=== PATIENT | male | born 1975 | race Caucasian/White ===

== ENCOUNTER 2018-12-14 17:49 | Inpatient (IN) | payer MEDICARE, MEDICAID ==
[~2018-12-14] VITALS: Ht 182.9 cm; Wt 74.8 kg
[2018-12-19] MEDS ORDERED: TOPAMAX50 MG PO (10:37)
[2018-12-19] MEDS ORDERED: KLONOPIN1 MG PO (10:37)
[2018-12-19 11:18] LABS: CALC OSMOLALITY 280 mosm/kg (275-300); CALCIUM 9.2 mg/dL (8.5-10.1); CARBON DIOXIDE 26.5 mmol/L (21.0-32.0); CHLORIDE - SERUM 105 mmol/L (98-107); GLUCOSE 91 mg/dL (74-106); POTASSIUM - SERUM 4.1 mmol/L (3.5-5.1); SODIUM 141 mmol/L (136-145); UREA NITROGEN 12 mg/dL (7-18); eGFR NON AFRICAN AMERICAN 87 mL/min (90-120)
[2018-12-19 11:52] LABS: BASOPHILS 0.6 % (0-2); EOSINOPHILS 1.7 % (0-7); HEMATOCRIT 47.6 % (42.0-54.0); HEMOGLOBIN 15.8 g/dL (13.5-17.5); IMMATURE GRANULOCYTES 0.3 % (0-5); LYMPHOCYTES 27.4 % (15-50); MCH 32.3 pg (26.0-34.0); MCHC 33.2 g/dL (31.0-37.0); MCV 97.3 fL (80.0-100.0); MEAN PLATELET VOLUME 10.9 fL (7.4-10.4); PLATELET COUNT 267 10x3/uL (130-400); RBC 4.89 10x6/uL (4.20-6.10); RDW 13.2 % (11.5-14.5); WBC 7.1 10x3/uL (4.8-10.8)
[2018-12-20 06:50] VITALS: BP 95/50
--- NOTE | 2018-12-20 11:02 | NUR ---
CONULTED ANESTHESIA REGARDING ELEVATED BLOOD PRESSURE. 172/108. PATIENT IS ASYMPTOMATIC. HR 72, O2 SAT 100% 2L. PATIENT HAS HAD DILAUDID 2MG AND HAS TOLERATED THIS. VERBAL ORDERS RECEIVED TO ADMINISTER HYDRALAZINE 5MG IN PACU NOW. ORDERS RECEIVED AND IMPLEMENTED.
--- NOTE | 2018-12-20 11:35 | NUR ---
AT 1120 RECONULTED ANESTHESIA REGARDING PERSISTENT ELEVATED BLOOD PRESSURE AFTER ADMINISTRATION OF HYDRALAZINE 5MG. VERBAL ORDERS RECEIVED TO REPEAT HYDRALAZINE 5MG NOW IN PACU. ORDERS RECEIEVED AND IMPLEMENTED. WILL CONTINUE TO MONITOR.
[2018-12-20 11:54] VITALS: BP 147/101
[2018-12-20 12:30] VITALS: BP 142/97
[2018-12-20 16:00] VITALS: BP 138/101
--- NOTE | 2018-12-20 18:47 | NUR ---
MAJOR ACCOUNT REPRESENTATIVE COMPLETE. PT LYING IN BED AAO X4 TO PERSON, PLACE, TIME AND SITUATION. SISTER AT BEDSIDE. DENIES PAIN AT THIS TIME. HALS COLECTOMY DONE TODAY. DENIES NEEDS AT THIS TIME. CL IN REACH
[2018-12-20 20:48] VITALS: BP 122/99
[2018-12-21 00:34] VITALS: BP 117/83
--- NOTE | 2018-12-21 02:31 | NUR ---
EYES CLOSED RESPIRATIONS WITH EASE AND UNLABORED. SR UP X2 CALL LIGHT WITHIN REACH.
[2018-12-21 04:46] VITALS: BP 120/84
[2018-12-21 06:50] LABS: CALC OSMOLALITY 280 mosm/kg (275-300); CALCIUM 8.7 mg/dL (8.5-10.1); CHLORIDE - SERUM 107 mmol/L (98-107); GLUCOSE 87 mg/dL (74-106); POTASSIUM - SERUM 4.3 mmol/L (3.5-5.1); SODIUM 142 mmol/L (136-145); UREA NITROGEN 11 mg/dL (7-18); eGFR NON AFRICAN AMERICAN 87 mL/min (90-120)
[2018-12-21 06:53] LABS: BASOPHILS 0.1 % (0-2); EOSINOPHILS 0 % (0-7); HEMATOCRIT 40.8 % (42.0-54.0); HEMOGLOBIN 13.4 g/dL (13.5-17.5); IMMATURE GRANULOCYTES 0.1 % (0-5); LYMPHOCYTES 14.9 % (15-50); MCH 32.1 pg (26.0-34.0); MCHC 32.8 g/dL (31.0-37.0); MCV 97.8 fL (80.0-100.0); MEAN PLATELET VOLUME 10.7 fL (7.4-10.4); MONOCYTES 9.1 % (2-11); NEUTROPHILS 75.8 % (40-80); PLATELET COUNT 238 10x3/uL (130-400); RBC 4.17 10x6/uL (4.20-6.10); RDW 13.2 % (11.5-14.5)
[2018-12-21 07:10] LABS: WBC 13.5 10x3/uL (4.8-10.8)
[2018-12-21 09:13] VITALS: BP 105/66
[2018-12-21 12:53] VITALS: Ht 182.9 cm; Wt 74.8 kg
[2018-12-21 15:16] VITALS: BP 131/98
[2018-12-21 17:52] VITALS: BP 101/39
[2018-12-21 20:00] VITALS: BP 113/80
--- NOTE | 2018-12-21 21:00 | NUR ---
PT LYING IN BED RESTING, NO SIGNS OF DISTRESS. ALERT AND ORIENTED. PT STATES PAIN IS ALWAYS 9 OR 10/10 AT ALL TIMES. IV RIGHT FA INFILTRATED. DC'D W/ CATHETER TIP INTACT. RESITED IV TO LEFT UPPER ARM INFUSING NS @ 125 W/ DILAUDID GREENSMAN. PT RECIEVING ATIVAN FOR ANXIETY. REFUSES SCDS. UP AD JAG. WAS ABLE TO GET UP AND TAKE SHOWER W/ MINIMAL TO NO ASSIST. PT VOIDING GOOD AFTER [place]FIELD REMOVAL. NO OTHER COMPLAINTS OR NEEDS AT THIS TIME. CL IN REACH, WILL CONTINUE TO MONITOR
[2018-12-22 05:06] LABS: BASOPHILS 0.3 % (0-2); EOSINOPHILS 1.6 % (0-7); HEMATOCRIT 32.7 % (42.0-54.0); HEMOGLOBIN 11.1 g/dL (13.5-17.5); IMMATURE GRANULOCYTES 0.1 % (0-5); LYMPHOCYTES 27.9 % (15-50); MCH 32.7 pg (26.0-34.0); MCHC 33.9 g/dL (31.0-37.0); MCV 96.5 fL (80.0-100.0); MEAN PLATELET VOLUME 10.5 fL (7.4-10.4); MONOCYTES 8.5 % (2-11); NEUTROPHILS 61.6 % (40-80); PLATELET COUNT 199 10x3/uL (130-400); RBC 3.39 10x6/uL (4.20-6.10); RDW 13.1 % (11.5-14.5)
[2018-12-22 05:10] LABS: WBC 7.9 10x3/uL (4.8-10.8)
[2018-12-22 05:26] LABS: CARBON DIOXIDE 21.5 mmol/L (21.0-32.0); CHLORIDE - SERUM 109 mmol/L (98-107); CREATININE - SERUM 0.8 mg/dL (0.6-1.3); GLUCOSE 81 mg/dL (74-106); SODIUM 142 mmol/L (136-145); eGFR NON AFRICAN AMERICAN > 90 mL/min (90-120)
[2018-12-22 05:29] LABS: CALC OSMOLALITY 282 mosm/kg (275-300); POTASSIUM - SERUM 3.4 mmol/L (3.5-5.1); UREA NITROGEN 14 mg/dL (7-18)
[2018-12-22 05:51] VITALS: BP 103/60
--- NOTE | 2018-12-22 07:45 | NUR ---
PT IS RESTING IN BED WITH EYES CLOSED. RESPIRATIONS ARE EVEN AND UNLABORED. PT IS EASILY AROUSED WITH VERNAL STIMULATION. PT REPORTS PAIN IN THE ABDOMINAL AREA 9/10. PT WITH MAKING LINE WORKER AVAILABLE. PT REPORTS BM THIS AM AND DESCRIBES SMALL AMOUNT OF UNFORMED STOOL. PT REPORTS THAT HE IS PASSING GAS. BS ARE ACTIVE X 4. PT REFUSES SCDS. BED IS IN THE LOWEST POSITION. CALL LIGHT AND BEDSIDE TABLE ARE WITHIN REACH. WILL CONT TO MONITOR.
[2018-12-22 08:19] VITALS: BP 117/70
[2018-12-22 08:30] VITALS: BP 91/62
--- NOTE | 2018-12-22 11:03 | MORECARE ---
CASE MANAGEMENT DISCHARGE SUMMARY PATIENT: EDUARDO MIGUEL UNIT: [id number] ADM DATE: 12/20/18 AGE: 43 : [birth year] SEX: M ROOM/BED: D.2214 AUTHOR: SHAINA WAY PHYSICIAN: REFERRING PHYSICIAN: BAKARI RICH MD DATE OF SERVICE: 12/22/18 Discharge Plan Patient Name: EDUARDO MIGUEL Facility: [facility]:[place] : 1975 Planned Disposition: Anticipated Discharge Date: Discharge Date: Expected LOS: Initial Reviewer: [email or web address] Initial Review Date: 12/20/2018 Generated: 12/22/18 12:03 pm Comments DCP- Discharge Planning Updated by [email or web address]: Ciara Diamond on 12/22/18 9:[address] attempted to see patient, he was sleeping will attempt at a later time Patient Name: EDUARDO MIGUEL Page [id number] at 1103 All edits/amendments must be made on the electronic document DICTATION DATE: 12/22/18 110 TRAY DRIER OPERATOR: LULU 12/22/18 1103 RPT#: [id number] DC DATE: STATUS: ADM IN [facility] [address] [place] [address] END OF REPORT
[2018-12-22 11:30] VITALS: BP 116/60
[2018-12-22 14:32] VITALS: BP 125/75
--- NOTE | 2018-12-22 15:49 | NUR ---
HUMAN RESOURCES PARTNER DILAUDID AND PIV INFUSION STOPPED. PT LEFT UPPER ARM PIV SALINE LOCKED.
--- NOTE | 2018-12-22 20:30 | NUR ---
PT LYING IN BED RESTING W/ EYES CLOSED. NO SIGNS OF DISTRESS. AWAKENS TO VERBAL STIMULI, ALERT AND ORIENTED. IV LEFT UPPER ARM SL. FLUSHES WELL. DRESSING CDI. PT STATES PAIN 07/25. PT ALREADY RECIEVED NORCO AT 1800. PT BP 91/62. INFORMED PT IT WAS TOO LOW FOR PRN DILAUDID BUT HE COULD RECIEVE SCHEDULED TORADOL. PT AGREED. REFUSES SCDS. CL IN REACH, WILL CONT TO MONITOR
[2018-12-22 23:16] VITALS: BP 91/62
--- NOTE | 2018-12-23 03:00 | NUR ---
PT STATES PAIN 06/24. GAVE NORCO ORDERED. NO OTHER NEEDS OR COMPLAINTS AT THIS TIME. CL IN REACH
[2018-12-23 03:38] VITALS: BP 105/74
[2018-12-23 06:20] LABS: BASOPHILS 0.3 % (0-2); EOSINOPHILS 3.9 % (0-7); HEMATOCRIT 34.5 % (42.0-54.0); HEMOGLOBIN 11.5 g/dL (13.5-17.5); IMMATURE GRANULOCYTES 0.3 % (0-5); LYMPHOCYTES 27.9 % (15-50); MCH 32.2 pg (26.0-34.0); MCHC 33.3 g/dL (31.0-37.0); MCV 96.6 fL (80.0-100.0); MEAN PLATELET VOLUME 10.7 fL (7.4-10.4); MONOCYTES 8.3 % (2-11); NEUTROPHILS 59.3 % (40-80); PLATELET COUNT 222 10x3/uL (130-400); RBC 3.57 10x6/uL (4.20-6.10); RDW 12.8 % (11.5-14.5); WBC 6.9 10x3/uL (4.8-10.8)
[2018-12-23 06:34] LABS: CALC OSMOLALITY 279 mosm/kg (275-300); CALCIUM 8.4 mg/dL (8.5-10.1); CARBON DIOXIDE 21.8 mmol/L (21.0-32.0); CHLORIDE - SERUM 108 mmol/L (98-107); CREATININE - SERUM 0.8 mg/dL (0.6-1.3); GLUCOSE 89 mg/dL (74-106); POTASSIUM - SERUM 3.6 mmol/L (3.5-5.1); SODIUM 142 mmol/L (136-145); UREA NITROGEN 8 mg/dL (7-18); eGFR NON AFRICAN AMERICAN > 90 mL/min (90-120)
--- NOTE | 2018-12-23 07:37 | NUR ---
AWAKE AND ALERT, LYING RIGHT SIDE, EVEN UNLABORED BREATHING, IV IN LEFT UPPER ARM, SALINE LOCKED, PATENT, DENIES ANY CURRENT NEEDS OR DISCOMFORTS, BED LOWERED AND LOCKED, CALL LIGHT WITHIN REACH. CPOC
[2018-12-23 09:07] VITALS: BP 102/70
[2018-12-23] MEDS ORDERED: NORCO-10 PO (10:07)
--- NOTE | 2018-12-23 10:44 | MORECARE ---
CASE MANAGEMENT DISCHARGE SUMMARY PATIENT: EDUARDO MIGUEL UNIT: [id number] ADM DATE: 12/20/18 AGE: 43 : 79 SEX: M ROOM/BED: D.2214 AUTHOR: SHAINA WAY PHYSICIAN: REFERRING PHYSICIAN: BAKARI RICH MD DATE OF SERVICE: 12/23/18 Discharge Plan Patient Name: EDUARDO MIGUEL Facility: [facility]:[place] : 1975 Planned Disposition: Home Anticipated Discharge Date: Discharge Date: Expected LOS: Initial Reviewer: [email or web address] Initial Review Date: 12/20/2018 Generated: 12/23/18 11:44 am Comments DCP- Discharge Planning Updated by [id number]: Ciara Diamond on 12/23/18 9:[address] Patient Name: EDUARDO MIGUEL Admission Status: Elective Accout number: [id number] Admission Date: 12-20-2018 : 1975 Admission Diagnosis: Attending: BAKARI RICH Current LOS: 3 Anticipated DC Date: Planned Disposition: Home Primary Insurance: [employer] ADV Discharge Planning Comments: CM met with patient to assess discharge planning needs. He lives independently in [place] and plans to return there today. 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 He stated he is safe to return there. He does not use any DME or HH services and does not need anything at DC. CM will continue to follow and assist with DC planning needs. IMM served and Explained Clearing Inspector: Ciara Diamond DCP- Discharge Planning Updated by [email or web address]: Ciara Diamond on 12/22/18 9:[address] attempted to see patient, he was sleeping will attempt at a later time DCPIA - Discharge Planning Initial Assessment Updated by [email or web address]: Ciara Diamond on 12/23/18 10:39 am * Is the patient Alert and Oriented? Yes * How many steps to enter\exit or inside your home? FEW * PCP MERVIN * Pharmacy [facility] IN [place] * Preadmission Environment Home with Family * ADLs Independent * Equipment None * List name and contact numbers for known caregivers / representatives who currently or will assist patient after discharge: PERI MIGUEL [phone] * Verbal permission to speak to the caregivers and representatives has been obtained from the patient. N/A * Community resources currently utilized None * Additional services required to return to the preadmission environment? No * Can the patient safely return to the preadmission environment? Yes * Has this patient been hospitalized within the prior 30 days at any hospital? No Coverage Notice Reviewer: [email or web address] Fatimah Diamond Notice Issued Date-Time: 12/23/2018 10:30 Notice Type: IM Discharge Notice Notice Delivered To: Patient Relationship to Patient: Hand Tapper Name: Delivery Method: HAND - Hand Delivered Antonietta Days: Prior Verbal Notification: Recipient Understood Notice: Yes Recipient Signature: Yes Med Rec Note Co-signed by Attending: Coverage Notice Comment: Last DP export: 12/22/18 10:03 am Patient Name: EDUARDO MIGUEL Page [id number] at 1044 All edits/amendments must be made on the electronic document DICTATION DATE: 12/23/18 1043 HASHER MACHINE OPERATOR: LULU 12/23/18 1043 RPT#: [id number] DC DATE: STATUS: ADM IN [facility] [address] [place] [address] END OF REPORT
--- NOTE | 2018-12-23 10:44 | NUR ---
[place]FIELD CATHETER DISCONTINUED PER PHARMACY CLINICAL SPECIALIST FROM [facility], 10ML OF FLUID REMOVED FROM BULB, CATHTER TIP INTACT, NO REDNESS, EDEMA, DRAINAGE FROM PERINAL AREA, DENIES ANY DISCOMFORT OR NEEDS, URINE COLLECTION HAT PLACED IN TOLIET TO MONITOR I&O, REEINFORCED THE NEED TO ASK FOR ASSISTANCE TO AND FROM THE RESTROOM, DENIES ANY OTHER NEEDS, BED LOWERED AND LOCKED, CALL LIGHT WITHIN REACH. CPOC
[2018-12-23 13:29] VITALS: BP 112/70
[2018-12-23 13:53] VITALS: BP 95/68
--- NOTE | 2018-12-23 17:14 | NUR ---
DISCHARGE INSTRUCTIONS GIVEN. VERBALIZES UNDERSTANDING. HARD COPY OF PRESCIPTIONS GIVEN TO PT. DENIES ANY CURRENT NEEDS. WAITING ON SISTER TO ARRIVE. SPOKE WITH HER VIA TELEPHONE AROUND 1500 AND SHE STATED SHE COULDN'T GET HER UNTIL 1700 OR LATER.
[2018-12-23 17:30] VITALS: BP 122/72
--- NOTE | 2018-12-26 11:31 | MORECARE ---
CASE MANAGEMENT DISCHARGE SUMMARY PATIENT: EDUARDO MIGUEL UNIT: [id number] ADM DATE: 12/20/18 AGE: 43 : 79 SEX: M ROOM/BED: D.2214 AUTHOR: SHAINA WAY PHYSICIAN: REFERRING PHYSICIAN: BAKARI RICH MD DATE OF SERVICE: 12/26/18 Discharge Plan Patient Name: EDUARDO MIGUEL Facility: [facility]:[place] : 1975 Planned Disposition: Home Anticipated Discharge Date: Discharge Date: 12/23/2018 Expected LOS: 0 Initial Reviewer: [email or web address] Initial Review Date: 12/20/2018 Generated: 12/26/18 12:31 pm Comments DCP- Discharge Planning Updated by [email or web address]: Ciara Diamond on 12/23/18 9:[address] Patient Name: EDUARDO MIGUEL Admission Status: Elective Accout number: [id number] Admission Date: 12-20-2018 : 1975 Admission Diagnosis: Attending: BAKARI RICH Current LOS: 3 Anticipated DC Date: Planned Disposition: Home Primary Insurance: [employer] ADV Discharge Planning Comments: CM met with patient to assess discharge planning needs. He lives independently in [place] and plans to return there today. 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 He stated he is safe to return there. He does not use any DME or HH services and does not need anything at DC. CM will continue to follow and assist with DC planning needs. IMM served and Explained Pleat Taper: Ciara Diamond DCP- Discharge Planning Updated by [email or web address]: Ciara Diamond on 12/22/18 9:[address] attempted to see patient, he was sleeping will attempt at a later time DCPIA - Discharge Planning Initial Assessment Updated by [email or web address]: Ciara Diamond on 12/23/18 10:39 am * Is the patient Alert and Oriented? Yes * How many steps to enter\exit or inside your home? FEW * PCP MERVIN * Pharmacy [facility] IN [place] * Preadmission Environment Home with Family * ADLs Independent * Equipment None * List name and contact numbers for known caregivers / representatives who currently or will assist patient after discharge: PERINANCY MIGUEL [phone] * Verbal permission to speak to the caregivers and representatives has been obtained from the patient. N/A * Community resources currently utilized None * Additional services required to return to the preadmission environment? No * Can the patient safely return to the preadmission environment? Yes * Has this patient been hospitalized within the prior 30 days at any hospital? No Coverage Notice Reviewer: [email or web address] Fatimah Diamond Notice Issued Date-Time: 12/23/2018 10:30 Notice Type: IM Discharge Notice Notice Delivered To: Patient Relationship to Patient: Lapping Machine Tender Name: Delivery Method: HAND - Hand Delivered Antonietta Days: Prior Verbal Notification: Recipient Understood Notice: Yes Recipient Signature: Yes Med Rec Note Co-signed by Attending: Coverage Notice Comment: Last DP export: 12/23/18 9:44 am Patient Name: EDUARDO MIGUEL Page [id number] at 1131 All edits/amendments must be made on the electronic document DICTATION DATE: 12/26/18 1131 DYE HOUSE HAND: LULU 12/26/18 1131 RPT#: [id number] DC DATE:12/23/18 STATUS: DIS IN [facility] [address] [place] [address] END OF REPORT
--- NOTE | 2019-01-12 09:41 | OP ---
PATIENT NAME: EDUARDO MIGUEL MEDICAL RECORD: [id number] :[birth year] LOCATION:D.MS [id number] ADMISSION DATE:12/20/18 SURGEON: YOGESH RICH MD DATE OF OPERATION: 12/20/2018 PREOPERATIVE DIAGNOSES: 1. Recurrent diverticulitis of the sigmoid colon. 2. History of traumatic brain injury. 3. Tobacco dependence syndrome. POSTOPERATIVE DIAGNOSES: 1. Recurrent diverticulitis of the sigmoid colon. 2. History of traumatic brain injury. 3. Tobacco dependence syndrome. PROCEDURE: Hand-assisted laparoscopic sigmoid colectomy. SURGEON: Yogesh Rich MD PRINT FINISHER: Nu Ellison MD REPORT OF PROCEDURE: The patient's abdomen was prepped and draped in sterile fashion. A skin incision was made on the lower abdomen in the suprapubic region. Electrocautery was used to dissect through the subcutaneous tissues and through the fascia. We bluntly entered the abdominal cavity and inserted a GelPort with a 5-mm trocar within it. The insufflation was then obtained and with this, a 5-mm trocar was placed in the right lateral abdomen and a 12-mm trocar was placed just anterior to the right anterior superior iliac crest. The patient's mid and distal sigmoid colon leading down into the pelvis was markedly inflamed and swollen. The bowel itself was rolled over on itself and adherent to the surrounding tissues. We eventually with, blunt dissection, were able to mobilize this portion of the colon and eventually get down to what appeared to be more normal rectum. The colon was freed up from its lateral attachments as it extended through the descending colon. This allowed us to mobilize this distal portion of the descending colon medially. The mesentery was opened up on the mid rectum and I was able to make a window through the mesorectum and a 45 blue load Endo-CHING stapler was used to transect this portion of the rectum. This was distal to the grossly inflamed tissue of the diverticulitis. The mesentery was then taken down with multiple fires of the 45 white load Endo-CHING stapler. At this point, we had good mobilization of this portion of the colon. We eviscerated this portion of the colon through the wound protector of the GelPort. The final portions of the mesentery were then taken down using a clamp and tie technique with 2-0 silks. Any bleeding vessels that were found were treated with 3-0 silk stick tie. The proximal sigmoid colon was transected using electrocautery and this portion of colon was sent off for permanent specimen. This portion of the colon proximally appeared to be normal with no signs of inflammatory changes. A 29 EEA anvil was inserted into the distal aspect of the descending colon and a 2-0 Prolene was used as a pursestring around this. We then freed off the fatty tissue at this end of the colon. The multiple dilators were placed through the anus followed by the 29 EEA stapler. An end-to-end anastomosis was performed under direct visualization. The anastomosis appeared to be intact. Two complete rings of tissue were present in the stapler. We then checked the staple line under water by instilling air through the rectum and there was no sign of any leakage. We then oversewed the anterior aspect of the anastomosis using Lemberted 3-0 silks. The abdomen was OPERATIVE REPORT [id number] EDUARDO MIGUEL then irrigated out thoroughly with normal saline and any blood clots were removed. At this point, the colon appeared to be clean. The Gelport and trocars were removed. The midline fascia was then closed with running #1 loop PDS times 2. The 12-mm trocar site fascia was closed with a single interrupted 0 Vicryl. The wounds were irrigated out with normal saline. We then closed the skin incisions with kori. COMPLICATIONS: None. CONDITION: Stable. ANESTHESIA: General endotracheal. BLOOD LOSS: 100 mL. TRANSINT:[id number] Voice Confirmation ID: [id number] DOCUMENT ID: [id number] YOGESH RICH MD at 0941 CC: GEE CANALES MD [id number] DICTATION DATE: 12/20/18 1007 INTERNAL INVESTIGATOR: 12/20/18 1021 DIS IN 12/23/18 [facility] [address] [place] [address]
== END 2018-12-23 18:30 | disposition home or self-care (01) | DRG 331 ==
LOC: D.SDCHOLD 12-20 05:35 → D.MS 12-20 05:35 → D.SDCHOLD 12-20 08:00 → D.MS 12-20 11:26
PROVIDERS: ADMIT Surgery
PROC: 0DTN0ZZ Resection of Sigmoid Colon, Open Approach (ICD-10-PCS; principal; 2018-12-20 08:00)
DX: K57.32 Diverticulitis of large intestine without perforation or abscess without bleeding (principal); Z87.820 Personal history of traumatic brain injury; F17.200 Nicotine dependence, unspecified, uncomplicated